=== PATIENT | female | born 1945 | race Caucasian/White ===

== ENCOUNTER 2017-09-08 11:39 | Inpatient (IN) | payer BC, MEDICARE ==
[~2017-09-08] VITALS: Ht 172.7 cm; Wt 90.3 kg
[2017-09-08 12:25] LABS: BASOPHILS # (AUTO) 0.03 x10^3/uL (0-0.1); BASOPHILS % (AUTO) 0 % (0-1); EOSINOPHILS # (AUTO) 0.01 x10^3/uL (0-0.4); EOSINOPHILS % (AUTO) 0 % (1-7); LYMPHOCYTES # (AUTO) 0.69 x10^3/uL (1-3.4); LYMPHOCYTES % (AUTO) 6 % (22-44); MD NO; MEAN CORPUSCULAR HEMOGLOBIN 32.3 pg (27.0-34.8); MEAN CORPUSCULAR HGB CONC 33.9 g/dL (32.4-35.8); MEAN CORPUSCULAR VOLUME 95.1 fL (80-100); MEAN PLATELET VOLUME 9.8 fL (7.4-10.4); MONOCYTES # (AUTO) 0.61 x10^3/uL (0.2-0.8); MONOCYTES % (AUTO) 6 % (2-9); NEUTROPHILS # (AUTO) 9.33 x10^3/uL (1.8-6.8); NEUTROPHILS % (AUTO) 87 % (42-75); PLATELET COUNT 169 x10^3/uL (130-400); RED BLOOD COUNT 4.43 x10^6/uL (3.82-5.3); RED CELL DISTRIBUTION WIDTH 12.1 % (9.6-15.2)
[2017-09-08 12:38] LABS: ALBUMIN 3.1 g/dL (3.4-5.0); ANION GAP 6 mmol/L (5-15); CHLORIDE 107 mmol/L (98-107)
[2017-09-08 12:43] LABS: ALANINE AMINOTRANSFERASE 22 U/L (12-78); ALKALINE PHOSPHATASE 109 U/L (45-117); BILIRUBIN,TOTAL 0.9 mg/dL (0.2-1.0); CREATININE 0.96 mg/dL (0.55-1.02); TOTAL PROTEIN 7.4 g/dL (6.4-8.2); TROPONIN I < 0.015 ng/mL (0.000-0.045)
[2017-09-08 13:35] LABS: MICROSCOPIC NOT IND
[2017-09-08 13:38] LABS: CULTURE INDICATED? NO
[2017-09-08] MEDS ORDERED: HEPARIN 5,000 UNITS/ML, 1ML IV ONE (15:30)
[2017-09-08] MEDS ORDERED: HEPARIN 5,000 UNITS/ML, 1ML ONE ×2 (15:51→15:52)
[2017-09-08] MEDS ORDERED: HEPARIN 25,000 UNITS/500ML PMX 500 ML ONE (15:53)
[2017-09-08 15:58] LABS: INTERNATIONAL NORMALIZED RATIO 0.94 (0.93-1.1); PROTHROMBIN TIME 9.8 Seconds (9.6-11.5)
[2017-09-08] MEDS: HEPARIN 25,000 UNITS/500ML PMX 500 ML IV PRN (16:06)
[2017-09-08] MEDS ORDERED: ONDANSETRON ODT 4 MG PO PRN (16:30)
[2017-09-08] MEDS: ACETAMINOPHEN 325 MG TABLET PO PRN (22:03)
[2017-09-09 01:00] VITALS: BP 117/69
[2017-09-09] MEDS ORDERED: DILTIAZEM 125 MG in SODIUM CHLORIDE 0.9% 100 ML IV SCH (01:30)
[2017-09-09 02:30] LABS: BASOPHILS # (AUTO) 0.05 x10^3/uL (0-0.1); BASOPHILS % (AUTO) 1 % (0-1); EOSINOPHILS # (AUTO) 0.01 x10^3/uL (0-0.4); EOSINOPHILS % (AUTO) 0 % (1-7); LYMPHOCYTES # (AUTO) 0.79 x10^3/uL (1-3.4); LYMPHOCYTES % (AUTO) 7 % (22-44); MD NO; MEAN CORPUSCULAR HEMOGLOBIN 32.3 pg (27.0-34.8); MEAN CORPUSCULAR HGB CONC 33.8 g/dL (32.4-35.8); MEAN CORPUSCULAR VOLUME 95.8 fL (80-100); MEAN PLATELET VOLUME 10.3 fL (7.4-10.4); MONOCYTES # (AUTO) 0.57 x10^3/uL (0.2-0.8); MONOCYTES % (AUTO) 5 % (2-9); NEUTROPHILS # (AUTO) 9.44 x10^3/uL (1.8-6.8); NEUTROPHILS % (AUTO) 87 % (42-75); PLATELET COUNT 186 x10^3/uL (130-400); RED BLOOD COUNT 4.37 x10^6/uL (3.82-5.3); RED CELL DISTRIBUTION WIDTH 12.1 % (9.6-15.2)
[2017-09-09 02:44] LABS: ALBUMIN 2.9 g/dL (3.4-5.0); ANION GAP 13 mmol/L (5-15); CHLORIDE 105 mmol/L (98-107)
[2017-09-09 02:47] LABS: ALANINE AMINOTRANSFERASE 24 U/L (12-78); ALKALINE PHOSPHATASE 122 U/L (45-117); BILIRUBIN,TOTAL 1.3 mg/dL (0.2-1.0); CREATININE 0.99 mg/dL (0.55-1.02); TOTAL PROTEIN 7.3 g/dL (6.4-8.2)
[2017-09-09] MEDS: HEPARIN 5,000 UNITS/ML, 1ML IV PRN ×3 (04:40→18:06)
[2017-09-09] MEDS ORDERED: DILTIAZEM 30 MG TABLET PO SCH ×2 (07:00→15:00)
[2017-09-09 07:41] VITALS: BP 104/56
[2017-09-09 11:06] LABS: FREE T4 (FREE THYROXINE) 1.44 ng/dL (0.76-1.46); THYROID STIMULATING HORMONE 3.87 mIU/L (0.358-3.740)
[2017-09-09 12:21] VITALS: BP 116/57
[2017-09-09] MEDS ORDERED: METO-95 PO (13:16)
[2017-09-09] MEDS ORDERED: HYDR12.53 PO (13:16)
[2017-09-09] MEDS ORDERED: POTA10TA17 PO (13:16)
[2017-09-09] MEDS ORDERED: THYR60TA PO (13:16)
[2017-09-09] MEDS: HEPARIN 25,000 UNITS/500ML PMX 500 ML IV PRN (18:08)
[2017-09-09 19:52] VITALS: BP 113/51
[2017-09-10 01:48] VITALS: BP 119/64
[2017-09-10] MEDS: THYROID 30 MG TABLET PO SCH (05:39)
[2017-09-10 07:43] VITALS: BP 131/63
[2017-09-10] MEDS: METOPROLOL SUCCINATE 100 MG TAB.ER.24H PO SCH (08:59)
[2017-09-10] MEDS: HEPARIN 5,000 UNITS/ML, 1ML IV PRN (09:02)
[2017-09-10 12:20] VITALS: BP 116/68
[2017-09-10] MEDS: HEPARIN 25,000 UNITS/500ML PMX 500 ML IV PRN (13:18)
[2017-09-10 13:33] LABS: HEMOGLOBIN A1C 5.7 % (4.2-6.3)
[2017-09-10 19:36] VITALS: BP 107/63
[2017-09-10] MEDS: APIXABAN 5 MG TABLET PO SCH (20:33)
[2017-09-11 02:00] VITALS: BP 155/73
[2017-09-11] MEDS: ACETAMINOPHEN 325 MG TABLET PO PRN (06:25)
[2017-09-11] MEDS: THYROID 30 MG TABLET PO SCH (06:25)
[2017-09-11 08:11] VITALS: BP 124/65
[2017-09-11] MEDS ORDERED: APIX5TAB PO ×2 (09:23)
[2017-09-11] MEDS: METOPROLOL SUCCINATE 100 MG TAB.ER.24H PO SCH (10:09)
[2017-09-11] MEDS: APIXABAN 5 MG TABLET PO SCH (10:09)
== END 2017-09-11 13:48 | disposition home or self-care (01) | DRG 175 ==
LOC: ED 16:07 → EDIP 16:08 → ED 16:43 → 4WST 20:51 → DCLOUNGE 09-11 13:20
PROVIDERS: ADMIT Internal Medicine; ATTEND Hospitalist
DX: I26.99 Other pulmonary embolism without acute cor pulmonale (principal); J96.01 Acute respiratory failure with hypoxia; D68.59 Other primary thrombophilia; I82.412 Acute embolism and thrombosis of left femoral vein; I82.432 Acute embolism and thrombosis of left popliteal vein; I82.442 Acute embolism and thrombosis of left tibial vein; J98.11 Atelectasis; D72.829 Elevated white blood cell count, unspecified; E03.9 Hypothyroidism, unspecified; I11.9 Hypertensive heart disease without heart failure; I48.91 Unspecified atrial fibrillation; E74.39 Other disorders of intestinal carbohydrate absorption; I48.0 Paroxysmal atrial fibrillation; Z82.49 Family history of ischemic heart disease and other diseases of the circulatory system; Z90.710 Acquired absence of both cervix and uterus; R73.9 Hyperglycemia, unspecified
CPT/HCPCS: 36415; 71046; 71275; 80053; 81003; 83036; 83735; 84439; 84443; 84484; 85025; 85379; 85520; 85610; 85730; 93005; 93306; 93970; 96374; J1644